=== PATIENT | male | born 1985 | race Caucasian/White ===

== ENCOUNTER 2021-05-20 10:10 | Emergency (ER) | payer SELFPAY ==
[2021-05-20 10:18] VITALS: BP 137/90; PULSE 95; RESP 16; TEMP 36.8; O2SAT 100; BMI 25.0
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
--- NOTE | 2021-05-20 10:22 | ECG_ITS ---
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 Measurements Intervals [place] Rate: 85 P: 34 RI: 165 QRS: -39 QRSD: 95 T: 26 QT: 359 QTc: 427 Interpretive Statements SINUS RHYTHM POSSIBLE LEFT ATRIAL ENLARGEMENT [-0.1mV P-WAVE IN V1/V2] LEFT AXIS DEVIATION [QRS AXIS < -30] POSSIBLE ANTERIOR MYOCARDIAL INFARCTION , OF INDETERMINATE AGE [30 ms Q WAVE IN V3/V4, OR R < 0.2 mV IN V4] No previous ECG available for comparison Electronically Signed On 05-20-2021 20:01:40 HEADLIGHT ADJUSTER by Vibha Paige M.D. [id number]
[2021-05-20 10:31] VITALS: BP 128/91; PULSE 98; RESP 16; TEMP 36.8; O2SAT 99
[2021-05-20] MEDS: sodium chloride 0.9% 1,000 ML 999 ML IV (10:58)
[2021-05-20 11:13] LABS: INR 1.22 (0.8-1.2)
[2021-05-20 11:16] LABS: D Dimer 0.32 ug/mIFEU (0-0.59)
[2021-05-20 11:19] LABS: Troponin(5th) Baseline 6 ng/L (0-15)
[2021-05-20 11:40] LABS: Alanine Aminotransferase 10 U/L (0-41); Albumin Level 4.4 g/dL (3.5-5.2); Alkaline Phosphatase 66 IU/L (40-130); Blood Urea Nitrogen 9 mg/dL (6-20); Calcium 8.8 mg/dL (8.5-10.5); Carbon Dioxide 26 mmol/L (22-29); Chloride 99 mmol/L (98-107); Creatine Phosphokinase 68 U/L (39-308); Globulin 3.1 g/dL (1.3-4.6); Glucose 100 mg/dL (65-115); Lipase 37 U/L (13-60); NT Pro B Type Natriuretic Pept 37 pg/mL (0-125); Osmolality Calculated 285 mOsm/kg (285-295); Sodium 138 mmol/L (136-145); Total Bilirubin 0.2 mg/dL (0.15-1.2); Total Protein 7.5 g/dL (6.6-8.7)
[2021-05-20 11:44] LABS: Basophils # 0.1 10^3/uL (0.0-0.1); Basophils % 1.4 %; Eosinophils # 0.1 10^3/uL (0.0-0.8); Eosinophils % 0.9 %; Hematocrit 28.7 % (42.0-52.0); Hemoglobin 7.7 g/dL (11.7-16.6); Lymphocytes # 0.7 10^3/uL (0.8-4.8); Lymphocytes % 12.3 %; Mean Corpuscular HGB Conc 26.8 g/dL (30.0-36.0); Mean Corpuscular Volume 59.7 fl (80-94); Mean Platelet Volume 9.3 fL (7.4-10.4); Monocytes # 0.6 10^3/uL (0.2-0.9); Monocytes % 10.8 %; Neutrophils # 4.29 10^3/uL (1.8-7.7); Neutrophils % 74.4 %; Nucleated Red Blood Cells % 0 %; Platelet Count 478 10^3/cmm (130-400); Red Blood Count 4.81 10^6/uL (4.1-5.3); White Blood Count 5.8 10^3/uL (4.0-10.0)
--- NOTE | 2021-05-20 12:05 | ECG_ITS ---
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 Measurements Intervals [place] Rate: 89 P: 36 AR: 169 QRS: -37 QRSD: 93 T: 23 QT: 356 QTc: 433 Interpretive Statements SINUS RHYTHM WITH OCCASIONAL ECTOPIC PREMATURE COMPLEXES POSSIBLE LEFT ATRIAL ENLARGEMENT [-0.1mV P-WAVE IN V1/V2] LEFT AXIS DEVIATION [QRS AXIS < -30] POSSIBLE ANTERIOR MYOCARDIAL INFARCTION , OF INDETERMINATE AGE [30 ms Q WAVE IN V3/V4, OR R < 0.2 mV IN V4] Compared to ECG 05/20/2021 11:02:21 No significant changes Electronically Signed On 05-20-2021 20:02:07 STOCK WORKER AND DELIVERER by Vibha Paige M.D. [id number]
[2021-05-20 12:06] VITALS: BP 136/83; PULSE 83; RESP 14; O2SAT 100
[2021-05-20 12:12] LABS: Anion Gap 17.3 (5-19); Aspartate Amino Transferase 26 U/L (0-40); Potassium 4.3 mmol/L (3.5-5.1)
[2021-05-20 12:58] LABS: Troponin 5 2HR 7.19 ng/L (0-15); Troponin 5 2HR Delta 1.19 ABS# (0-10)
[2021-05-20 14:01] VITALS: BP 145/91; PULSE 89; RESP 16; TEMP 37.1; O2SAT 100
--- NOTE | 2021-05-21 16:40 | DCPLANNER ---
classification case manager had message to schedule a follow up appointment for patient with [facility] and a primary care physician. classification case manager called [facility], spoke with Tala, a follow up appointment was scheduled for Sunday, June 10 at 2:[address] Paige. classification case manager called [facility] in [place], gave clinic patients information, a follow up appointment is scheduled for Wednesday, July 15, 2020 at 3:[address] Gaytan. classification case manager called patient and gave him both of the appointments.
--- NOTE | 2021-07-16 08:44 | DCPLANNER ---
Patient had a follow up appointment scheduled for [facility] 06.10.21 at [facility] - patient did not attend appointment.
== END 2021-05-20 14:03 | disposition home or self-care (01) ==
PROVIDERS: Emergency Provider Physician Assistant
DX: R07.89 Other chest pain (principal); F41.9 Anxiety disorder, unspecified; D64.9 Anemia, unspecified; Z79.82 Long term (current) use of aspirin
CPT/HCPCS: 36415; 71045; 80053; 82550; 83690; 83880; 84484; 85025; 85378; 85610; 93005; 96360; 99284; J7030

== ENCOUNTER 2023-06-08 10:31 | Emergency (ER) | payer SELFPAY ==
[2023-06-08 10:58] VITALS: BP 159/92; PULSE 115; RESP 18; O2SAT 99
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
[2023-06-08] MEDS: HYDROcodone-acetaminophen 5-325 mg Tablet 1 TAB PO (13:09)
== END 2023-06-08 13:14 | disposition home or self-care (01) ==
PROVIDERS: Emergency Provider Emergency Medicine
DX: K08.89 Other specified disorders of teeth and supporting structures (principal); Z79.82 Long term (current) use of aspirin
CPT/HCPCS: 99283